=== PATIENT | male | born 1995 | race African-American/Black ===

== ENCOUNTER 2018-04-16 23:06 | Emergency (ER) | payer MEDICAID ==
[~2018-04-16] VITALS: Ht 193 cm; Wt 66.0 kg
[2018-04-17] MEDS ORDERED: KETOROLAC 30MG/ML VIAL IV STA (02:56)
[2018-04-17] MEDS ORDERED: FAMOTIDINE 20MG/2ML VIAL IV STA (02:56)
[2018-04-17 03:25] LABS: BASOPHILS % 0.8 % (0.0-2.0); EOSINOPHILS % 0.9 % (0.0-5.0); HEMATOCRIT. 45.3 % (42.0-52.0); HEMOGLOBIN. 15.2 g/dL (14.0-18.0); LYMPHOCYTES % 24.2 % (20.0-50.0); MEAN CORPUSCULAR HEMOGLOBIN 26.3 pg (28.0-32.0); MEAN CORPUSCULAR VOLUME 78.4 fL (80.0-94.0); MEAN PLATELET VOLUME 9.3 fl (7.4-10.4); MONOCYTES % 6.7 % (2.0-8.0); NEUTROPHILS % 67.4 % (40.0-76.0); PLATELET 164 x1000/uL (130-400); RED BLOOD CELL COUNT 5.77 mill/uL (4.7-6.1)
[2018-04-17 03:30] LABS: CLARITY URINE CLEAR (CLEAR); COLOR URINE DARK YELLOW (YELLOW); KETONES URINE 3+ (NEGATIVE); LEUKOCYTE ESTERASE URINE NEGATIVE (NEGATIVE); NITRITE URINE NEGATIVE (NEGATIVE); OCCULT BLOOD URINE NEGATIVE (NEGATIVE); PH URINE 5.5 (4.5-8.0); PROTEIN URINE 1+ (NEGATIVE); SPECIFIC GRAVITY URINE 1.037 (1.005-1.030)
[2018-04-17 03:37] LABS: CHLORIDE 104 mEq/L (98-107)
[2018-04-17] MEDS ORDERED: SODIUM CHLORIDE 0.9% 1,000 ML IV ONE ×2 (05:00)
[2018-04-17 06:18] VITALS: BP 110/57
== END 2018-04-17 06:20 | disposition home or self-care (01) ==
LOC: ER 23:06
DX: R10.13 Epigastric pain (principal); R80.9 Proteinuria, unspecified; R03.0 Elevated blood-pressure reading, without diagnosis of hypertension; F12.10 Cannabis abuse, uncomplicated
CPT/HCPCS: 36415; 76705; 80053; 81003; 83690; 85025; 96374; 96375; 99285; J1885; J3490; J7030; Z7610